=== PATIENT | male | born 1990 | race Caucasian/White ===

== ENCOUNTER 2022-12-22 09:14 | Day surgery (SDC) | payer OTHER ==
[2022-12-19 13:38] VITALS: BMI 27.8
[2022-12-22] MEDS ORDERED: ONDANSETRON 4 MG/2 ML VIAL IVPUSH PRN (10:18)
[2022-12-22] MEDS ORDERED: oxyCODONE HCL 5 MG TABLET PO PRN (10:18)
[2022-12-22] MEDS ORDERED: LACTATED RINGERS SOLUTION 1,000 ML IV SCH (10:30)
[2022-12-22] MEDS ORDERED: BUPIVACAINE HCL/PF 2.5 MG/ML - 30 ML VIAL IJ ONE (11:32)
[2022-12-22] MEDS ORDERED: EPINEPHrine 1:1,000 1,000 MCG/ML ML ONE (11:32)
[2022-12-22] MEDS ORDERED: PROPOFOL 20 ML ONE (11:52)
[2022-12-22] MEDS ORDERED: MIDAZOLAM HCL 2 MG/2 ML SINGLE DOSE VIAL ONE (11:52)
[2022-12-22 13:56] VITALS: RESP 16
[2022-12-22 14:44] VITALS: BP 129/76; PULSE 69; TEMP 97.4
== END 2022-12-22 14:59 | disposition home or self-care (01) ==
LOC: FASU 09:14
PROVIDERS: ATTEND Orthopaedic Surgery
PROC: 0SBG4ZZ Excision of Left Ankle Joint, Percutaneous Endoscopic Approach (ICD-10-PCS; principal; 2022-12-22 12:48)
DX: M24.172 Other articular cartilage disorders, left ankle (principal); M65.872 Other synovitis and tenosynovitis, left ankle and foot; L90.5 Scar conditions and fibrosis of skin; M94.8X7 Other specified disorders of cartilage, ankle and foot
CPT/HCPCS: 94760